=== PATIENT | male | born 1960 | race Caucasian/White ===

== ENCOUNTER 2018-06-15 02:39 | Observation (INO) | payer BC ==
[2018-06-15] MEDS ORDERED: MORPHINE SULFATE 10 MG/ML INJ IV ONE (02:56)
[2018-06-15] MEDS ORDERED: ONDANSETRON HCL INJ/PF 4 MG/2 ML SDV IV ONE ×2 (02:56→04:35)
[2018-06-15] MEDS ORDERED: NORMAL SALINE 1000 ML 1,000 ML IV ONE (02:56)
[2018-06-15] MEDS ORDERED: ASPIRIN 81 MG TABLET, CHEWABLE PO ONE (02:56)
--- NOTE | 2018-06-15 03:00 | ER Document Report ---
ED GI/ - General Stated Complaint: ABDOMINAL PAIN Time Seen by Provider: 06/15/18 02:52 Mode of Arrival: Ambulatory Information source: Patient Notes: Patient is a 58-year-old male who presents with chief complaint of epigastric pain. Patient reports he had similar episode yesterday that lasted approximately 6 hours and resolved on its own. Patient reports he woke up tonight in severe pain and vomited 1. Patient denies any radiation of the pain. Patient reports pain feels like a sharp stabbing pain in his upper abdomen. Patient reports past surgical history of appendectomy. Patient denies the use of any alcohol. Denies any other chronic medical problems. Denies any daily medications. - Related Data Allergies/Adverse Reactions: Penicillins Allergy (Verified 06/15/18 03:06) Past Medical History - General Information source: Patient - Social History Smoking Status: Current Some Day Smoker Frequency of alcohol use: None Drug Abuse: None Family History: Reviewed & Not Pertinent - Medical History Medical History: Negative Past Surgical History: Reports: Hx Appendectomy - Immunizations Immunizations up to date: No Physical Exam - Vital signs Vitals: Resp BP Pulse Ox 21 H 156/99 H 100 06/15/18 02:55 06/15/18 02:55 06/15/18 02:55 - Notes Notes: PHYSICAL EXAMINATION: GENERAL: Well-nourished and in moderate distress. HEAD: Atraumatic, normocephalic. EYES: Pupils equal round and reactive to light, extraocular movements intact, sclera anicteric, conjunctiva are normal. ENT: Nares patent, oropharynx clear without exudates. Moist mucous membranes. NECK: Normal range of motion, supple without lymphadenopathy LUNGS: Breath sounds clear to auscultation bilaterally and equal. No wheezes rales or rhonchi. HEART: Regular rate and rhythm without murmurs ABDOMEN: Soft, nondistended abdomen, tenderness to palpation over upper abdomen with guarding noted. Musculoskeletal: Normal range of motion, no pitting or edema. No cyanosis. NEUROLOGICAL: Cranial nerves grossly intact. Normal speech, normal gait. Normal sensory, motor exams PSYCH: Normal mood, normal affect. SKIN: Warm, Dry, normal turgor, no rashes or lesions noted. Course - Re-evaluation Re-evalutation: CBC, comprehensive metabolic panel, lipase and urinalysis are all unremarkable. Patient was given 4 mg of morphine which did not relieve his pain. Patient was then given 1 mg of Dilaudid which patient reported significant pain relief. When patient arrived back from ultrasound patient had episode of increasing pain while standing at the bedside using a urinal in which time he vagaled down to a heart rate of 30. I did call Dr. Burrell to the bedside to evaluate the patient at this time. He recommends sending the patient for a CT of the abdomen with IV contrast. Patient continues to complain of pain in the epigastric area and nowhere else. Patient denies any chest pain or shortness of breath. Ultrasound reveals a mild sludge in the gallbladder. CT of the abdomen shows gallstones in the neck of the gallbladder. Patient does have adequate pain relief with IV Dilaudid. Resting heart rate has returned to 58 bpm. Patient has not had any episodes of hypotension. 06/15/18 06:[address] Young, general surgeon who agrees to come and evaluate the patient. 06/15/18 07:[address] Young and Dr. Watson are at the bedside, patient accepted for admission. - Vital Signs Vital signs: Temp Pulse Resp BP Pulse Ox 98.6 F 66 17 148/99 H 99 06/15/18 04:00 06/15/18 03:05 06/15/18 07:01 06/15/18 07:01 06/15/18 07:01 - Laboratory Result Diagrams: 06/15/18 02:49 06/15/18 02:49 Discharge - Discharge Clinical Impression: Cholelithiasis Qualifiers: Cholelithiasis location: other site Biliary obstruction: without biliary obstruction Qualified Code(s): K80.80 - Other cholelithiasis without obstruction Abdominal pain Qualifiers: Abdominal location: epigastric Qualified Code(s): R10.13 - Epigastric pain Vomiting Qualifiers: Vomiting Intractability: non-intractable Nausea presence: with nausea Condition: Stable Disposition: ADMITTED INPATIENT Admitting Provider: Surgicalist Unit Admitted: Medical Floor
[2018-06-15 03:15] LABS: ALANINE AMINOTRANSFERASE 36 U/L (21-72); ALBUMIN 4.5 g/dL (3.5-5.0); ALKALINE PHOSPHATASE 73 U/L (38-126); ANION GAP 15 (5-19); ASPARTATE AMINO TRANSFERASE 30 U/L (17-59); BILIRUBIN,DIRECT 0.3 mg/dL (0.0-0.4); BILIRUBIN,TOTAL 0.5 mg/dL (0.2-1.3); BLOOD UREA NITROGEN 16 mg/dL (7-20); CARBON DIOXIDE 23 mmol/L (22-30); CHLORIDE 106 mmol/L (98-107); CREATINE KINASE 86 U/L (55-170); GLUCOSE 99 mg/dL (75-110); LIPASE 93.7 U/L (23-300); POTASSIUM 3.9 mmol/L (3.6-5.0); SODIUM 143.6 mmol/L (137-145); TOTAL PROTEIN 7.4 g/dL (6.3-8.2)
[2018-06-15 03:17] LABS: ABSOLUTE EOSINOPHILS # (AUTO) 0.2 10^3/uL (0.0-0.6); ABSOLUTE LYMPHOCYTES (AUTO) 3.6 10^3/uL (0.5-4.7); ABSOLUTE MONOCYTES (AUTO) 0.6 10^3/uL (0.1-1.4); BASOPHILS % (AUTO) 0.5 % (0-2); EOSINOPHILS % (AUTO) 2.4 % (0-6); HEMATOCRIT 45.5 % (37.9-51.0); HEMOGLOBIN 15.6 g/dL (13.5-17.0); LYMPHOCYTES % (AUTO) 42.6 % (13-45); MEAN CORPUSCULAR HEMOGLOBIN 30.1 pg (27.0-33.4); MEAN CORPUSCULAR HGB CONC 34.2 g/dL (32.0-36.0); MEAN CORPUSCULAR VOLUME 88 fl (80-97); MONOCYTES % (AUTO) 7.2 % (3-13); PLATELET COUNT 232 10^3/uL (150-450); RED BLOOD COUNT 5.18 10^6/uL (4.35-5.55); RED CELL DISTRIBUTION WIDTH 13.5 % (11.5-14.0); SEGMENTED NEUTROPHILS % (AUTO) 47.3 % (42-78); TOTAL CELLS COUNTED % (AUTO) 100 %; WHITE BLOOD COUNT 8.4 10^3/uL (4.0-10.5)
[2018-06-15 03:26] LABS: CREATINE KINASE MB 0.71 ng/mL (<4.55)
[2018-06-15 03:29] LABS: TROPONIN I < 0.012 ng/mL
--- NOTE | 2018-06-15 03:36 | RADIOLOGY REPORT (SQ) ---
EXAM DESCRIPTION: XR CHEST 1 VIEW COMPLETED DATE/TME: 06/15/2018 02:56 CLINICAL HISTORY: 58 years Male, epigastric pain COMPARISON: None. NUMBER OF VIEWS/TECHNIQUE: 1/AP FINDINGS: Moderate lung volume, clear parenchyma, normal cardiac silhouette, and intact bony thorax. IMPRESSION: No acute cardiopulmonary findings.
[2018-06-15] MEDS ORDERED: HYDROMORPHONE HCL INJ/PF 2 MG/ML AMPULE IV ONE ×2 (03:37→04:43)
--- NOTE | 2018-06-15 05:08 | RADIOLOGY REPORT (SQ) ---
NAME: VALENTÍN WHALEN PROCEDURE: US ABDOMEN LIMITED ORDER DATE: 06/15/2018 3:36 AM CDT ACCESSION NUMBER: [id number] Clinical History: epigastric pain Indication: Same as above Comparison: None . Technique: The study was done on 06/15/2018 at 4:08 AM local time Bailey scale evaluation of the right upper quadrant of the abdomen was done ultrasonographically along with limited color Doppler evaluation Findings: The gallbladder wall thickness is normal and measures 1.7 mm. There is probable tiny amount of intraluminal sludge in the gallbladder There is no pericholecystic fluid. There is no ultrasonographically positive North's sign. The common duct is normal in transverse diameter and measures 4.0 mm. There is no intraductal common duct calculus. The liver measures 14.9 centimeters in length. There are no focal liver lesions. There is no intrahepatic biliary dilatation. The main portal vein is of normal caliber and shows normal hepatopedal blood flow. The hepatic veins are patent. The pancreas is obscured by overlying bowel gas . The right kidney measures 11.6 cm in length. There is no hydronephrosis or nephrolithiasis in the right kidney. There is no documented ascitic fluid in the evaluated right upper quadrant of the abdomen. The abdominal aorta is obscured by overlying bowel gas There is no documented right-sided pleural effusion. Impression: There is probable tiny amount of intraluminal sludge in the gallbladder Location of Interpretation: Teleradiology
[2018-06-15 05:30] LABS: APPEARANCE,URINE CLEAR; BILIRUBIN,URINE NEGATIVE (NEGATIVE); COLOR,URINE STRAW; GLUCOSE, URINE NEGATIVE (NEGATIVE); KETONES,URINE NEGATIVE (NEGATIVE); LEUKOCYTE ESTERASE,URINE NEGATIVE (NEGATIVE); NITRITE,URINE NEGATIVE (NEGATIVE); PROTEIN,URINE NEGATIVE (NEGATIVE); URINE SPECIFIC GRAVITY 1.011; UROBILINOGEN,URINE NEGATIVE mg/dL (<2.0)
--- NOTE | 2018-06-15 05:38 | RADIOLOGY REPORT (SQ) ---
CT abdomen and pelvis with contrast on 06/15/2018 at 5:09 AM CLINICAL INDICATION: Epigastric pain TECHNIQUE: Multiple axial images are obtained throughout the abdomen and pelvis following the administration of IV contrast. This exam was performed according to our departmental dose-optimization program, which includes automated exposure control, adjustment of the mA and/or kV according to patient size and/or use of iterative reconstruction technique. Total DLP is 1749.64 mGy*cm. COMPARISON: None FINDINGS: Abdomen: There is minimal bibasilar atelectasis. There is a very small hiatal hernia. Gallstones are noted in the gallbladder neck. The solid abdominal organs are otherwise unremarkable. There is no abdominal adenopathy. Mild vascular calcifications are noted. There is no free fluid or free air within the abdomen. The abdominal portion of the GI tract is otherwise unremarkable. Pelvis: There is no free fluid in the pelvis. There is no pelvic adenopathy. The appendix is not visualized but no pericecal inflammatory changes are noted. The pelvic portion of the GI tract is unremarkable. No bony abnormality is noted. IMPRESSION: 1. Cholelithiasis. 2. Otherwise no acute abnormality.
--- NOTE | 2018-06-15 05:41 | EKG REPORT ---
SEVERITY:- ABNORMAL ECG - SINUS RHYTHM NONSPECIFIC INTRAVENTRICULAR CONDUCTION DELAY NONSPECIFIC ST-T CHANGES- INFERIOR LEADS : Confirmed by: Deepak Vela MD 15-Jun-2018 05:40:17
[2018-06-15] MEDS ORDERED: ONDANSETRON HCL INJ/PF 4 MG/2 ML SDV IV PRN ×2 (07:28→12:35)
[2018-06-15] MEDS ORDERED: HYDROMORPHONE HCL INJ/PF 2 MG/ML AMPULE IV PRN (07:28)
--- NOTE | 2018-06-15 07:39 | PDOC H&P ---
History of Present Illness Patient complains of: Abdominal pain History of Present Illness: VALENTÍN WHALEN is a 58 year old male The presents emergency department complaining of acute onset abdominal pain approximately 6 hours prior to admission. Last meal 8:00 last night. Patient denies history of trauma previous episodes, or diarrhea. Pain persisted in the right upper quadrant, with some radiation to the mid chest region. He was evaluated in the emergency department where he had an EKG which showed nonspecific ST-T wave changes. Because of persisting right upper quadrant tenderness, the patient had a gallbladder ultrasound which showed sludge. On the way back from the ultrasonography suite, the patient was standing up trying to void, and became weak. His pulse went from 60-30. He received some IV fluids, and pain medication before and after this episode. His heart rate stabilized, and troponin level checked and it was within normal limits. He then went for CT scan of the abdomen and pelvis without oral contrast which confirmed cholelithiasis; no other pathologic findings. Surgery was consulted the patient was evaluated was advised admission for definitive management. Past Medical History Past Medical History: Nephrolithiasis Past Surgical History Past Surgical History: Cystoscopy, appendectomy; patient has never had a colonoscopy Past Surgical History: Reports: Appendectomy Social History Smoking Status: Current Some Day Smoker Frequency of Alcohol Use: Rare Hx Recreational Drug Use: No Hx Prescription Drug Abuse: No Family History Family History: Reviewed & Not Pertinent Parental Family History Reviewed: No Children Family History Reviewed: No Sibling(s) Family History Reviewed.: No Medication/Allergy Allergies/Adverse Reactions: Penicillins Allergy (Verified 06/15/18 03:06) Review of Systems Constitutional: ABSENT: chills, fever(s), headache(s), weight gain, weight loss Eyes: ABSENT: visual disturbances Ears: ABSENT: hearing changes Cardiovascular: ABSENT: chest pain, dyspnea on exertion, edema, orthropnea, palpitations Gastrointestinal: PRESENT: as per HPI Genitourinary: PRESENT: as per HPI Musculoskeletal: ABSENT: joint swelling Integumentary: ABSENT: rash, wounds Neurological: ABSENT: abnormal gait, abnormal speech, confusion, dizziness, focal weakness, syncope Physical Exam Vital Signs: Temp Pulse Resp BP Pulse Ox 98.6 F 66 17 148/99 H 99 06/15/18 04:00 06/15/18 03:05 06/15/18 07:01 06/15/18 07:01 06/15/18 07:01 Intake & Output 06/14/18 06/15/18 06/16/18 06:59 06:59 06:59 Intake Total 1000 Balance 1000 Weight 95.254 kg General appearance: PRESENT: other - Moderate distress; now several hours since last pain medication dose Head exam: PRESENT: normocephalic Eye exam: PRESENT: EOMI Mouth exam: PRESENT: dry mucosa Neck exam: PRESENT: full ROM Respiratory exam: PRESENT: accessory muscle use Cardiovascular exam: PRESENT: RRR Pulses: PRESENT: normal carotid pulses, normal radial pulses, normal femoral pulses, normal dorsalis pedis pul GI/Abdominal exam: PRESENT: other - Tender right upper quadrant with guarding; no rigidity; no hernias, organomegaly; no skin changes. Rectal exam: PRESENT: deferred Extremities exam: PRESENT: full ROM Musculoskeletal exam: PRESENT: full ROM Neurological exam: PRESENT: alert, awake, oriented to person, oriented to time, oriented to situation Psychiatric exam: PRESENT: appropriate affect Results Laboratory Results: 06/15/18 02:49 06/15/18 02:49 06/15/18 06/15/18 06/15/18 02:49 02:49 04:57 WBC 8.4 RBC 5.18 Hgb 15.6 Hct 45.5 MCV 88 MCH 30.1 MCHC 34.2 RDW 13.5 Plt Count 232 Seg Neutrophils % 47.3 Lymphocytes % 42.6 Monocytes % 7.2 Eosinophils % 2.4 Basophils % 0.5 Absolute Neutrophils 4.0 Absolute Lymphocytes 3.6 Absolute Monocytes 0.6 Absolute Eosinophils 0.2 Absolute Basophils 0.0 Sodium 143.6 Potassium 3.9 Chloride 106 Carbon Dioxide 23 Anion Gap 15 BUN 16 Creatinine 0.70 Est GFR ( Amer) > 60 Est GFR (Non-Af Amer) > 60 Glucose 99 Calcium 10.0 Total Bilirubin 0.5 AST 30 ALT 36 Alkaline Phosphatase 73 Total Protein 7.4 Albumin 4.5 Lipase 93.7 Urine Color STRAW Urine Appearance CLEAR Urine pH 8.0 Ur Specific [place] 1.011 Urine Protein NEGATIVE Urine Glucose (UA) NEGATIVE Urine Ketones NEGATIVE Urine Blood NEGATIVE Urine Nitrite NEGATIVE Ur Leukocyte Esterase NEGATIVE Urine WBC (Auto) 1 Urine RBC (Auto) 0 06/15/18 06/15/18 06/15/18 02:49 02:49 06:00 Creatine Kinase 86 CK-MB (CK-2) 0.71 Troponin I < 0.012 < 0.012 Impressions: Chest X-Ray 06/15/18 02:56 IMPRESSION: No acute cardiopulmonary findings. Abdomen/Pelvis CT 06/15/18 04:42 IMPRESSION: 1. Cholelithiasis. 2. Otherwise no acute abnormality. Assessment & Plan - Diagnosis (1) Cholelithiasis Qualifiers: Cholelithiasis location: gallbladder Biliary obstruction: without biliary obstruction Qualified Code(s): K80.80 - Other cholelithiasis without obstruction Is this a current diagnosis for this admission?: Yes Plan: Impression: Acute cholecystitis with cholelithiasis and otherwise healthy 58- year-old male, smoker. Pain is sufficiently controlled at present. Recommendations: 1. Admit, IV fluids, n.p.o., IV antibiotics 2. Set patient up for laparoscopic, possible open cholecystectomy, [facility], general anesthesia. I have discussed provisionally the mechanics of the operation as well as expected postoperative course. We will discuss this again in the preop holding area. 3. Patient is visiting from [place]; his daughter is having a baby at the [facility]. 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 (2) Abdominal pain Qualifiers: Abdominal location: epigastric Qualified Code(s): R10.13 - Epigastric pain (3) Smoker Is this a current diagnosis for this admission?: Yes (4) History of nephrolithiasis Is this a current diagnosis for this admission?: Yes (5) Bradycardia Is this a current diagnosis for this admission?: Yes Plan: Impression: Likely vasovagal mediated while trying to urinate while standing; bradycardia now resolved; EKG shows nonspecific ST-T wave changes; troponin levels checked 2 and are within normal limits. Chest x-ray unremarkable. Patient at low-moderate risk for perioperative myocardial event AK, will discuss with Dr. Bledsoe, anesthesiologist - Time Time Spent: 50 to 70 Minutes Critical Time spent with patient: 15-24 minutes Medications reviewed and adjusted accordingly: Yes Anticipated discharge: Home - Inpatient Certification Based on my medical assessment, after consideration of the patient's comorbidities, presenting symptoms, or acuity I expect that the services needed warrant INPATIENT care.: Yes I certify that my determination is in accordance with my understanding of Medicare's requirements for reasonable and necessary INPATIENT services [42 CFR 412.3e].: Yes Medical Necessity: Need For IV Fluids, Need for Pain Control, Need for IV Antibiotics, Need for Surgery
[2018-06-15] MEDS ORDERED: CEFAZOLIN 1 GM/D5W RTU 1 GM/50 ML RTUPB IV ONE (07:45)
[2018-06-15] MEDS ORDERED: GLYCOPYRROLATE 1 MG/5 ML SYRINGE ONE (10:26)
[2018-06-15] MEDS ORDERED: ROCURONIUM BROMIDE INJ 50 MG/5 ML VIAL IV ONE (10:26)
[2018-06-15] MEDS ORDERED: NEOSTIGMINE METHYLSULFATE 10 MG/10 ML VIAL ONE (10:26)
[2018-06-15] MEDS ORDERED: SUCCINYLCHOLINE CHLORIDE INJ 200 MG/10 ML VIAL ONE (10:26)
[2018-06-15] MEDS ORDERED: DEXAMETHASONE SOD PHOSPHATE INJ 4 MG/1 ML VIAL ONE (10:26)
[2018-06-15] MEDS ORDERED: ONDANSETRON HCL INJ/PF 4 MG/2 ML SDV ONE (10:26)
[2018-06-15] MEDS ORDERED: FENTANYL CITRATE INJ/PF 250 MCG/5 ML AMPULE ONE (10:40)
[2018-06-15] MEDS ORDERED: MIDAZOLAM 2 MG/2 ML INJ ONE (10:40)
[2018-06-15] MEDS ORDERED: EPHEDRINE SULFATE INJ 50 MG/1 ML AMPULE ONE (10:41)
[2018-06-15] MEDS ORDERED: ACETAMINOPHEN 1,000 MG/100 ML RTUPB IV ONE (10:41)
[2018-06-15] MEDS ORDERED: PROPOFOL INJ 200 MG/20 ML VIAL IV ONE (10:41)
[2018-06-15] MEDS ORDERED: HYDROMORPHONE HCL INJ/PF 2 MG/ML AMPULE ONE (10:42)
[2018-06-15] MEDS: BUPIVACAINE HCL 0.5 % INJ/PF 30 ML SDV ONE ×2 (10:50→11:14)
[2018-06-15] MEDS ORDERED: OXYCODONE-ACETAMINOPHEN 5-325 MG TABLET PO PRN ×3 (11:40→12:34)
[2018-06-15] MEDS ORDERED: DIPHENHYDRAMINE HCL 50 MG/ML VIAL IV PRN (11:40)
[2018-06-15] MEDS ORDERED: MORPHINE SULFATE 10 MG/ML INJ IV PRN (11:40)
[2018-06-15] MEDS ORDERED: MEPERIDINE HCL/PF INJ 25 MG/1 ML DISP.SYRIN IV PRN (11:40)
[2018-06-15] MEDS ORDERED: PROMETHAZINE HCL INJ 25 MG/1 ML VIAL IV PRN ×2 (11:40)
[2018-06-15] MEDS ORDERED: FENTANYL CITRATE INJ/PF 100 MCG/2 ML AMPUL IV PRN ×3 (11:40)
[2018-06-15] MEDS ORDERED: KETOROLAC TROMETHAMINE INJ/PF 30 MG/1 ML SDV IV PRN (12:35)
[2018-06-15] MEDS ORDERED: KETOROLAC TROMETHAMINE 10 MG TABLET PO PRN (12:35)
--- NOTE | 2018-06-15 12:40 | Operative Report ---
Operative Report DATE OF SURGERY: 06/15/18 PREOPERATIVE DIAGNOSIS: Acute cholecystitis cholelithiasis POSTOPERATIVE DIAGNOSIS: Same OPERATION: Laparoscopic cholecystectomy SURGEON: CLAY ALVARADO ANESTHESIA: GA TISSUE REMOVED OR ALTERED: 1 gallbladder with contents COMPLICATIONS: None ESTIMATED BLOOD LOSS: 70 cc INTRAOPERATIVE FINDINGS: See below PROCEDURE: After obtaining informed consent, the patient was taken to the operating room. General Anesthesia was induced; the arms were extended, and the abdomen was exposed, and prepped and draped in a sterile fashion. Instrumentation was set up for laparoscopic cholecystectomy. Surgical plan and surgical timeout were conducted. A vertical incision was made above the umbilicus, and a verres needle was inserted uneventfully into the peritoneal cavity. Pneumoperitoneum was established. The verres needle was removed and a 5 mm trocar was inserted and a 5 mm flexible laparoscope was inserted. Visualization of the peritoneal cavity confirmed safe uneventful entry. Under direct visualization 3 additional 5 mm ports were established, one in the subxiphoid position and second in the subcostal position. There was no evidence of injury to bowel or viscera upon port insertion. The findings are significant for the gastrocolic omentum stuck to the inflamed acutely dilated gallbladder. Using a combination of blunt and electrocautery dissection, the inflammatory omentum was peeled off of the gallbladder. We now aspirated the gallbladder approximately 100 cc of bile. A grasper was placed on the fundus of the gallbladder and the gallbladder is elevated over the right surface of the liver; a second grasper was used to grasp the infundibulum of the gallbladder. There was a significant amount of inflammatory fatty tissue in this area but were able to identify the neck of the gallbladder and junction with the cystic duct which was dissected out. Was dissected out. The Cystic artery was in its usual location medial and cephalad to the cystic duct. Actually 2 small branches of the cystic artery both of which were rounded with with a right angle clamp, clipped twice proximally and divided with laparoscopic scissors. We now opened the triangle of [place]ot by dividing the peritoneal reflection on both the medial and lateral sides of the cystic duct infundibular junction. The critical view was obtained. We now milked the cystic duct of any possible stones, clipped the cystic duct approximately 2 times once distally and divided with scissors. The gallbladder was now removed from the undersurface of the liver using hook cautery dissection. There was opening of the gallbladder one point but no spillage of stones. Graspers were repositioned and the gallbladder was placed in an Endobag and was removed uneventfully from the abdominal cavity through the super umbilical port site incision. The specimen was examined, then passed off to pathology for permanent analysis. There was some onerous arterial and venous oozing from the transverse colonic fatty tissue in the vicinity of the adhesions taken down at the beginning the operation. Bleeding was controlled using a combination of clips, electrocautery , and 2 strips of Surgicel. We reinspected this area after leveling the patient wound and there was no evidence of any more bleeding.. We Confirmed satisfactory placement of clips on cystic duct and cystic artery were secured . At this point we felt the operation was complete. The supraumbilical port site incision was closed with a single 0 PDS suture under direct visualization using the disposable suture passer. The subcutaneous tissue was then anesthetized with quarter percent Marcaine Sponge and needle counts are correct. All ports removed under direct visualization pneumoperitoneum evacuated, and 5 mm port wounds closed with 3-0 Vicryl suture, benzoin and Steri-Strips. The patient was extubated, and taken to the recovery room in stable condition.
--- NOTE | 2018-06-15 13:04 | EKG REPORT ---
SEVERITY:- ABNORMAL ECG - SINUS RHYTHM NONSPECIFIC INTRAVENTRICULAR CONDUCTION DELAY LEFT VENTRICULAR HYPERTROPHY : Confirmed by: Deepak Vela MD 15-Jun-2018 13:03:18
[2018-06-15] MEDS ORDERED: CEFAZOLIN 1 GM/D5W RTU 1 GM/50 ML RTUPB IV SCH (14:00)
[2018-06-15] MEDS: CEFAZOLIN 1 GM/D5W RTU 1 GM/50 ML RTUPB IV SCH ×2 (15:14→21:29)
[2018-06-16] MEDS: CEFAZOLIN 1 GM/D5W RTU 1 GM/50 ML RTUPB IV SCH (06:58)
[2018-06-16 07:50] VITALS: BP 136/76
--- NOTE | 2018-06-16 15:10 | DISCHARGE SUMMARY E ---
Discharge Summary NAME: VALENTÍN WHALEN : 1960 AGE: 58Y ADMITTED: 06/15/2018 DISCHARGED: 06/16/2018 FINAL DIAGNOSIS: Acute cholecystitis with cholelithiasis, status post laparoscopic cholecystectomy by Dr. Alvarado. REASON FOR ADMISSION: Gallbladder disease. SUMMARY OF HOSPITALIZATION: Patient is a 58-year-old [place] who presents to the emergency department complaining of acute onset abdominal pain, nausea, anorexia. Reports similar episode several months ago. He was seen in the emergency department, where he had a gallbladder ultrasound, which showed cholelithiasis. A CT scan confirmed the above. There were no other pathologic findings. He did have a cardiac evaluation in the emergency department, which showed no evidence of acute myocardial event. The patient was admitted to the surgical service, kept n.p.o. and taken to the operating room by Dr. Alvarado on 06/15/2018, where he underwent laparoscopic cholecystectomy. He was found to have an acutely inflamed gallbladder. The gallbladder was removed uneventfully, and he had an uneventful postoperative course. Diet was advanced. He tolerated this well and his pain was controlled. The following morning, he was felt to receive maximum benefit from the hospitalization and was discharged home. DISPOSITION: Patient was discharged home to the care of his family. Followup with medical care in [place], his home state, on a p.r.n. basis. He may shower. He may take Tylenol p.r.n. pain. DICTATING PHYSICIAN: CLAY ALVARADO M.D. [id number] PHY#: [id number] ID: [id number] JOB#: [id number] ACCT: [id number] cc:CLAY ALVARADO M.D. >
== END 2018-06-16 07:54 | disposition home or self-care (01) ==
LOC: ER 02:39 → INTOOBSV 07:45 → EH 07:45 → 5 14:57
PROVIDERS: ADMIT Surgery; ATTEND Surgery
PROC: 0FT44ZZ Resection of Gallbladder, Percutaneous Endoscopic Approach (ICD-10-PCS; principal; 2018-06-15 11:00)
DX: K80.10 Calculus of gallbladder with chronic cholecystitis without obstruction (principal); R53.1 Weakness; F17.200 Nicotine dependence, unspecified, uncomplicated; R00.1 Bradycardia, unspecified; Z90.49 Acquired absence of other specified parts of digestive tract; Z87.442 Personal history of urinary calculi; Z98.890 Other specified postprocedural states
CPT/HCPCS: 93005; 96376; 99285; 96361; 96374; 96375; 36415; 82553; 82550; 83690; 85025; 80053; 81001; 84484; 88304 ×2; 71045; 76705; 74177; 93010; 47562; G0378 ×3; J2250; J3490 ×4; J0690 ×2; J1100; J3010; J1885; J2270; J1170; J0330; J2405; J7030; J2704; J0131; 790